=== PATIENT | female | born 1955 | race Caucasian/White ===

== ENCOUNTER 2021-02-28 05:15 | Emergency (ER) | payer OTHER ==
[~2021-02-28] VITALS: Ht 157 cm; Wt 95.0 kg
--- NOTE | 2021-02-28 05:42 | ED General ---
General Chief Complaint: Altered Mental Status Stated Complaint: POSS STROKE,AMS Source of Information: Other (PT WITH BASELINE CONFUSION AND IS UNABLE TO GIVE ANY RELIABLE INFORMATION. 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 VAGUE HISTORIAN, GIVES MUCH CONVOLUTED INFORMATION) (BALJIT GIBSON DO) History of Present Illness Date Seen by Provider: Feb 28, 2021 Time Seen by Provider: 05:27 Initial Comments PT ARRIVES VIA POV WITH PT AMBULATES IN ON HER OWN WITHOUT DIFFICULTY BROUGHT HER IN BECAUSE HE WOKE UP AT 0400 AND PT WAS SWEATING, HE CHECKED HER BLOOD SUGAR AND IT WAS 127 AND THEN RECHECKED IT AND IT WENT DOWN TO 108, SO RUSHED HERE PT TOOK LANTUS 30 UNITS AT 2230 ( BUT THEN STATES SHE WENT TO BED AT 2200 ), AND SHE HAD HUMULIN 2 UNITS AT 1730 THEN GIVES CONVOLUTED STORY THAT HE THINKS SHE IS HAVING ANOTHER STROKE --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 SHE DID NOT RECEIVE ANY THROMBOLYTICS OR INTERVENTIONS. PT IS ON PLAVIX. PT STATES SHE HAS NOT SEEN A NEUROLOGIST SINCE 2018 HE STATES SHE HAS BEEN "ALOT MORE CONFUSED THAN NORMAL FOR THE LAST SEVERAL WEEKS" BUT TODAY SHE WAS MUCH MORE ALERT THAN SHE HAS BEEN FOR THE LAST 3 WEEKS" THEN STATES SHE SLEEPS ALL DAY AND ALL NIGHT, AND OFTEN DOES NOT TAKE HER MORNING MEDICATIONS UNTIL LATE IN THE AFTERNOON BECAUSE SHE SLEEPS ALL DAY. STATES THEY ARE HERE VISITING FROM [place]--HERE FOR A [place]ING--DROVE HERE STATES THAT SHE THREW UP ONCE AFTER SHE ATE AT THE [place]. NO PROBLEMS EATING OR DRINKING SINCE THEN NO FEVER NO COUGH/CONGESTION NO SHORTNESS OF BREATH ON DIRECT QUESTIONING OF PATIENT, SHE STATES SHE FEELS FINE, AND ON REVIEW OF SYSTEMS, SHE DENIES ANY SYMPTOMS OF ANY KIND PT SMILING, AND SPEECH IS CLEAR, PT IS ABLE TO CARRY ON A CONVERSATION, WITH OCCASIONAL INAPPROPRIATE/NON-RELATED STATEMENTS, AND OCCASIONALLY LAUGHS INAPPROPRIATELY. PT HAS HAD BOTH MODERNA COVID-19 VACCINES--LAST ONE 09/2020 PCP IN [place] (BALJIT GIBSON DO) Allergies and Home Medications Patient Home Medication List Home Medication List Reviewed: Yes (CHESTER GOODWIN MD) Review of Systems Review of Systems Constitutional: see HPI, diaphoresis; No dizziness, No fever EENTM: no symptoms reported; No blurred vision, No double vision, No nose congestion, No throat pain Respiratory: no symptoms reported; No cough, No short of breath Cardiovascular: no symptoms reported; No chest pain, No edema, No palpitations Gastrointestinal: no symptoms reported; No abdominal pain, No constipation, No diarrhea, No loss of appetite, No nausea, No vomiting Genitourinary: no symptoms reported Musculoskeletal: no symptoms reported Skin: no symptoms reported Psychiatric/Neurological: See HPI; Denies Headache, Denies Numbness, Denies Paresthesia, Denies Seizure, Denies Tingling, Denies Weakness Hematologic/Lymphatic: No Symptoms Reported Immunological/Allergic: no symptoms reported (BALJIT GIBSON DO) Past Nekzekb-Cbjrdf-Ewfcmf Hx Patient Social History Tobacco Use?: No Smoking Status: Never a Smoker Smokeless Tobacco Frequency: Never a User Use of E-Cig and/or Vaping Kurtis: Never a User Substance use?: No Alcohol Use?: No (BALJIT GIBSON DO) Immunizations Up To Date Second COVID19 Vaccination Jassi: 09/2020 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 oz. kg; BMI Method: General Appearance: No Apparent Distress, WD/WN, Obese, Other (PT WALKS IN ON HER OWN, GAIT STEADY, SPEECH CLEAR. OCCASIONALLY LAUGHS IN APPROPRIATELY OR SAYS SOMETHING NON-RELEVANT TO CONVERSATION; PT ABLE TO FOLLOW ALL COMMANDS, INCLUDING MODERATE COMPLEXITY COMMANDS. 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 as Tested; No Abnormal Cerebellar Tests, No Abnormal Gait, No Aphasia, No EOM Palsy, No Facial Droop, No Motor Weakness, No Sensory Deficit; Other (SPEECH IS CLEAR' NORMAL [id number] AND [id number]) Skin: Normal Color, Warm/Dry (BALJIT GIBSON DO) Progress/Results/Core Measures Suspected Sepsis SIRS Temperature: Pulse: Respiratory Rate: Laboratory Tests 02/28/21 06:02: Blood Pressure / Mean: Laboratory Tests 02/28/21 06:02: (BALJIT GIBSON DO) Results/Orders Lab Results Laboratory Tests Test 02/28/21 05:26 02/28/21 05:55 02/28/21 06:02 02/28/21 06:12 Range/Units Glucometer 99 70-110 MG/DL SARS-CoV-2 RNA (RT-PCR) Not Detected Not Detecte White Blood Count 16.0 H 4.3-11.0 10^3/uL Red Blood Count 4.70 3.80-5.11 10^6/uL Hemoglobin 14.0 11.5-16.0 g/dL Hematocrit 43 35-52 % Mean Corpuscular Volume 92 80-99 fL Mean Corpuscular Hemoglobin 30 25-34 pg Mean Corpuscular Hemoglobin Concent 32 32-36 g/dL Red Cell Distribution Width 13.0 10.0-14.5 % Platelet Count 292 130-400 10^3/uL Mean Platelet Volume 11.3 9.0-12.2 fL Immature Granulocyte % (Auto) 1 % Neutrophils (%) (Auto) 63 42-75 % Lymphocytes (%) (Auto) 25 12-44 % Monocytes (%) (Auto) 8 0-12 % Eosinophils (%) (Auto) 2 0-10 % Basophils (%) (Auto) 1 0-10 % Neutrophils # (Auto) 10.2 H 1.8-7.8 10^3/uL Lymphocytes # (Auto) 4.1 H 1.0-4.0 10^3/uL Monocytes # (Auto) 1.3 H 0.0-1.0 10^3/uL Eosinophils # (Auto) 0.3 0.0-0.3 10^3/uL Basophils # (Auto) 0.1 0.0-0.1 10^3/uL Immature Granulocyte # (Auto) 0.1 0.0-0.1 10^3/uL Neutrophils % (Manual) 49 % Lymphocytes % (Manual) 36 % Monocytes % (Manual) 8 % Eosinophils % (Manual) 3 % Band Neutrophils 4 % Blood Morphology Comment NORMAL Prothrombin Time 13.0 12.2-14.7 SEC INR Comment 1.0 0.8-1.4 Activated Partial Thromboplast Time 30 24-35 SEC D-Dimer < 0.27 0.00-0.49 UG/ML Sodium Level 143 135-145 MMOL/L Potassium Level 3.9 3.6-5.0 MMOL/L Chloride Level 104 98-107 MMOL/L Carbon Dioxide Level 25 21-32 MMOL/L Anion Gap 14 5-14 MMOL/L Blood Urea Nitrogen 19 H 7-18 MG/DL Creatinine 1.27 0.60-1.30 MG/DL Estimat Glomerular Filtration Rate 42 BUN/Creatinine Ratio 15 Glucose Level 100 70-105 MG/DL Calcium Level 9.8 8.5-10.1 MG/DL Corrected Calcium 9.6 8.5-10.1 MG/DL Magnesium Level 1.9 1.6-2.4 MG/DL Total Bilirubin 0.4 0.1-1.0 MG/DL Aspartate Amino Transf (AST/SGOT) 22 5-34 U/L Alanine Aminotransferase (ALT/SGPT) 20 0-55 U/L Alkaline Phosphatase 85 40-136 U/L Troponin I < 0.028 <0.028 NG/ML Total Protein 7.8 6.4-8.2 GM/DL Albumin 4.2 3.2-4.5 GM/DL Serum Alcohol < 10 <10 MG/DL Urine Color YELLOW Urine Clarity CLEAR Urine pH 6.0 5-9 Urine Specific [place] >=1.030 1.016-1.022 Urine Protein NEGATIVE NEGATIVE Urine Glucose (UA) NEGATIVE NEGATIVE Urine Ketones TRACE H NEGATIVE Urine Nitrite NEGATIVE NEGATIVE Urine Bilirubin NEGATIVE NEGATIVE Urine Urobilinogen 0.2 < = 1.0 MG/DL Urine Leukocyte Esterase NEGATIVE NEGATIVE Urine RBC (Auto) NEGATIVE NEGATIVE Urine RBC NONE /HPF Urine WBC NONE /HPF Urine Squamous Epithelial Cells >50 H /HPF Urine Crystals NONE /LPF Urine Bacteria MODERATE H /HPF Urine Casts NONE /LPF Urine Mucus LARGE H /LPF Urine Culture Indicated NO Urine Opiates Screen NEGATIVE NEGATIVE Urine Oxycodone Screen NEGATIVE NEGATIVE Urine Methadone Screen NEGATIVE NEGATIVE Urine Propoxyphene Screen NEGATIVE NEGATIVE Urine Barbiturates Screen NEGATIVE NEGATIVE Ur Tricyclic Antidepressants Screen NEGATIVE NEGATIVE Urine Phencyclidine Screen NEGATIVE NEGATIVE Urine Amphetamines Screen NEGATIVE NEGATIVE Urine Methamphetamines Screen NEGATIVE NEGATIVE Urine Benzodiazepines Screen NEGATIVE NEGATIVE Urine Cocaine Screen NEGATIVE NEGATIVE Urine Cannabinoids Screen NEGATIVE NEGATIVE Test 02/28/21 07:37 Range/Units Glucometer 157 H 70-110 MG/DL (CHESTER GOODWIN MD) Vital Signs/I&O 02/28/21 02/28/21 05:33 07:51 Temp 36.4 Pulse 67 65 Resp 18 18 B/P (MAP) 135/104 (114) 126/75 Pulse Ox 100 95 O2 Delivery Room Air Room Air (CHESTER GOODWIN MD) Vital Signs/I&O Capillary Refill : (BALJIT GIBSON DO) Progress Note : Progress Note ACCUCHECK 99 ON ARRIVAL CARE TURNED OVER TO DR. GOODWIN AT SHIFT CHANGE, ALL LAB PENDING (BALJIT GIBSON DO) Progress Note : Time: 07:40 Progress Note patient re-evaluated. VSS. awake, alert and oriented. No complaints of headache, confusion, weakness, speech difficulty. no pain, shortness of breath or cough. no urinary or GI symptoms. Labs reviewed and unremarkable (mildly elevated WBC). no other concerning findings. Head CT normal, CXR normal. related the same story he told Dr Gibson. SHe has been more fatigues the last 2-3 weeks. ([place]). He states she is sleeping 15 hours a day. went to a wedding over the weekend. episode of vomiting saturday night. actually better the last 2 days., He heard her get up about 4am, checked her and she was profusely sweating. Sugar 127. rechecked her again, sugar low 100's. gave her a square of chocolate, sever luisa crackers and saltines. concerned for possible stroke, although no lateralizing signs. patient has been stable throughout ED visit. without complaints. rechecked sugar prior to discharge. 157. Patient and advised they are in the area another 6 days - planning to go to [place] today. Return precautions given. They verbalize understanding of discharge plan and are comfortable with it. all questions are sought and answered.l (CHESTER GOODWIN MD) ECG Initial ECG Impression Date: Feb 28, 2021 Initial ECG Impression Time: 05:50 Initial ECG Rate: 66 Initial ECG Rhythm: Normal Sinus Initial ECG Comparisson: No Previous ECG Available (BALJIT GIBSON DO) Diagnostic Imaging Comments CT HEAD--NO ACUTE PROCESS, PER [facility] RADIOLOGIST VIA PHONE AT 0604 Reviewed: Reviewed by Me, Discussed w/Radiologist (BALJIT GIBSON DO) Departure Impression Primary Impression: Leukocytosis, unspecified Additional Impression: Diabetes Qualified Codes: E11.9 - Type 2 diabetes mellitus without complications; Z79.4 - custodial (current) use of insulin Disposition: 01 HOME, SELF-CARE Condition: Stable Departure-Patient Inst. Decision time for Depature: 07:42 (CHESTER GOODWIN MD) Referrals: NO,LOCAL PHYSICIAN (PCP/Family) Primary Care Physician Patient Instructions: Diabetes in Older Adults Add. Discharge Instructions: please continue to monitor your blood sugar closely. come back to the emergency department for any new, concerning or emergent complaints. please follow up with your primary care doctor when you get home. BALJIT GIBSON DO Feb 28, 2021 05:42 CHESTER GOODWIN MD Feb 28, 2021 07:43
--- NOTE | 2021-02-28 06:08 | Diagnostic Imaging Report ---
INDICATION: Confusion, sweating, hypoglycemia. TECHNIQUE: Single view chest 5:54 AM. CORRELATION STUDY: None FINDINGS: Heart size enlarged. Pulmonary vasculature within normal limits. Smooth density at the right cardiophrenic angle may reflect prominent pericardial fat or the benign process. Atelectasis or less likely infiltrate not excluded. Remaining lung farr clear. IMPRESSION: 1. Cardiac enlargement without failure. 2. Smoothly marginated density right cardiophrenic angle favors benign process. However, given no prior comparison, short-term follow-up two-view chest imaging recommended. Dictated by: Dictated on workstation # [id number]
[2021-02-28 06:10] LABS: BASOPHILS # (AUTO) 0.1 10^3/uL (0.0-0.1); BASOPHILS % (AUTO) 1 % (0-10); EOSINOPHILS # (AUTO) 0.3 10^3/uL (0.0-0.3); EOSINOPHILS % (AUTO) 2 % (0-10); HEMATOCRIT 43 % (35-52); LYMPHOCYTES # (AUTO) 4.1 10^3/uL (1.0-4.0); LYMPHOCYTES % (AUTO) 25 % (12-44); MEAN CORPUSCULAR HEMOGLOBIN 30 pg (25-34); MEAN CORPUSCULAR HGB CONC 32 g/dL (32-36); MEAN CORPUSCULAR VOLUME 92 fL (80-99); MEAN PLATELET VOLUME 11.3 fL (9.0-12.2); MONOCYTES # (AUTO) 1.3 10^3/uL (0.0-1.0); MONOCYTES % (AUTO) 8 % (0-12); NEUTROPHILS # (AUTO) 10.2 10^3/uL (1.8-7.8); NEUTROPHILS % (AUTO) 63 % (42-75); PLATELET COUNT 292 10^3/uL (130-400)
--- NOTE | 2021-02-28 06:11 | Diagnostic Imaging Report ---
PROCEDURE: CT head wo r/o stroke. TECHNIQUE: Multiple contiguous axial images were obtained through the brain without the use of intravenous contrast. Auto Exposure Controls were utilized during the CT exam to meet ALARA standards for radiation dose reduction. INDICATION: Confusion, sweating, hypoglycemia. CORRELATION STUDY: None FINDINGS: Ventricles and sulci are age-appropriate. More focal regional areas of decreased attenuation compatible with prior areas of infarct and encephalomalacia at the medial left occipital lobe, and inferior left cerebellum. Additional low-attenuation likely owing to chronic small vessel ischemic disease. No definitive evidence for edema. No midline shift or mass effect. No intracranial hemorrhage. Basal ganglia calcification present. Bony calvarium unremarkable. Paranasal sinuses clear. IMPRESSION: 1. Negative for acute intracranial abnormality. Initial report was provided by [facility]. Dictated by: Dictated on workstation # [id number]
[2021-02-28 06:23] LABS: BILIRUBIN,URINE NEGATIVE (NEGATIVE); CLARITY,URINE CLEAR; GLUCOSE, URINE (UA) NEGATIVE (NEGATIVE); KETONES,URINE TRACE (NEGATIVE); LEUKOCYTE ESTERASE ,URINE NEGATIVE (NEGATIVE); NITRITE,URINE NEGATIVE (NEGATIVE); PROTEIN,URINE NEGATIVE (NEGATIVE)
[2021-02-28 06:25] LABS: ALBUMIN 4.2 GM/DL (3.2-4.5); CHLORIDE 104 MMOL/L (98-107); POTASSIUM 3.9 MMOL/L (3.6-5.0); SODIUM 143 MMOL/L (135-145)
[2021-02-28 06:26] LABS: CALCIUM 9.8 MG/DL (8.5-10.1)
[2021-02-28 06:27] LABS: BAND NEUTROPHILS 4 %; EOSINOPHILS % (MANUAL) 3 %; GLUCOSE 100 MG/DL (70-105); LYMPHOCYTES % (MANUAL) 36 %; MONOCYTES % (MANUAL) 8 %; NEUTROPHILS % (MANUAL) 49 %; RBC MORPH NORMAL; TOTAL PROTEIN 7.8 GM/DL (6.4-8.2)
[2021-02-28 06:28] LABS: CARBON DIOXIDE 25 MMOL/L (21-32)
[2021-02-28 06:29] LABS: BILIRUBIN,TOTAL 0.4 MG/DL (0.1-1.0)
[2021-02-28 06:31] LABS: BACTERIA,URINE MODERATE /HPF; COLOR,URINE YELLOW; SQUAMOUS EPITHELIAL CELL,UR >50 /HPF
[2021-02-28 06:31] LABS: ALKALINE PHOSPHATASE 85 U/L (40-136); CREATININE SERUM 1.27 MG/DL (0.60-1.30); GFR ESTIMATED 42
[2021-02-28 06:32] LABS: BUN/CREATININE RATIO 15
[2021-02-28 06:34] LABS: ALANINE AMINOTRANSFERASE 20 U/L (0-55); FIBRIN DEGRADATION PRODUCTS < 0.27 UG/ML (0.00-0.49); MAGNESIUM 1.9 MG/DL (1.6-2.4); PARTIAL THROMBOPLASTIN TIME 30 SEC (24-35)
[2021-02-28 06:39] LABS: AMPHETAMINE SCREEN, URINE NEGATIVE (NEGATIVE); BARBITURATE SCREEN URINE NEGATIVE (NEGATIVE); BENZODIAZEPINES SCREEN URINE NEGATIVE (NEGATIVE); CANNABINOID SCREEN, URINE NEGATIVE (NEGATIVE); COCAINE SCREEN URINE NEGATIVE (NEGATIVE); METHADONE STAT NEGATIVE (NEGATIVE); METHAMPHETAMINE SCREEN URINE S NEGATIVE (NEGATIVE); OPIATE SCREEN URINE NEGATIVE (NEGATIVE); OXYCODONE STAT NEGATIVE (NEGATIVE); PROPOXYPHENE STAT NEGATIVE (NEGATIVE); TRICYCLIC ANTIDEPRESSANTS SCRE NEGATIVE (NEGATIVE)
[2021-02-28 07:51] VITALS: BP 126/75
== END 2021-02-28 07:50 | disposition home or self-care (01) ==
LOC: ER 05:20
DX: D72.829 Elevated white blood cell count, unspecified (principal); E11.9 Type 2 diabetes mellitus without complications; E66.9 Obesity, unspecified; I10 Essential (primary) hypertension; Z86.73 Personal history of transient ischemic attack (TIA), and cerebral infarction without residual deficits; Z79.4 Long term (current) use of insulin; Z20.822 Contact with and (suspected) exposure to COVID-19
CPT/HCPCS: 51701; 70450; 71045; 80053; 80306; 81000; 82947; 83735; 84484; 85007; 85027; 85379; 85610; 85730; 87636; 93005; 93041; 99284; G0480; 36415; 80320